=== PATIENT | male | born 1995 | race Caucasian/White ===

== ENCOUNTER 2016-10-02 02:30 | Emergency (ER) | payer SELFPAY ==
[~2016-10-02] VITALS: Ht 160 cm; Wt 59.9 kg
--- NOTE | 2016-10-02 02:30 | NUR ---
AMBULATED TO ER BED 4
[2016-10-02 02:39] VITALS: BP 123/76
[2016-10-02] MEDS ORDERED: MORPHINE SULFATE 4 MG/ML SYR IM ONE (02:50)
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
--- NOTE | 2016-10-02 03:20 | NUR ---
Patient being evaluated by DR. BEAULIEU at bedside.
[2016-10-02] MEDS ORDERED: LIDOCAINE 1% 500 MG/50 ML VIAL INJ ONE (03:35)
--- NOTE | 2016-10-02 03:37 | NUR ---
[facility] [facility] AT BEDSIDE
--- NOTE | 2016-10-02 04:30 | NUR ---
DR. BEAULIEU PERFORMS SUTURE AT BEDSIDE
--- NOTE | 2016-10-02 05:09 | NUR ---
APPLIED NEOSPONRIN OINTMENT THEN COVER WITH DRY DRESSING.
[2016-10-02] MEDS ORDERED: NEOMYCIN/POLYMYXIN/BACITRACIN 0.9 GM/1 PKT TP ONE (05:12)
[2016-10-02 05:32] VITALS: BP 130/89
--- NOTE | 2016-10-02 05:32 | NUR ---
Patient discharged with v/s stable. Written and verbal after care instructions given and explained. Patient alert, oriented and verbalized understanding of instructions. Ambulatory with steady gait. All questions addressed prior to discharge. ID band removed. Patient advised to follow up with PMD. Rx of NORCO 10/325 MG, MOTRIN 800 MG given. Patient educated on indication of medication including possible reaction and side effects. Opportunity to ask questions provided and answered.
== END 2016-10-02 05:32 | disposition home or self-care (01) ==
LOC: MED 02:30
DX: S52.601A Unspecified fracture of lower end of right ulna, initial encounter for closed fracture (principal); S51.811A Laceration without foreign body of right forearm, initial encounter; R20.0 Anesthesia of skin; F12.90 Cannabis use, unspecified, uncomplicated; W26.0XXA Contact with knife, initial encounter; Y93.89 Activity, other specified; Y92.89 Other specified places as the place of occurrence of the external cause; Y99.8 Other external cause status
CPT/HCPCS: 12002; 29125; 73110; 96372; 99284; J2001; J2270

== ENCOUNTER 2018-01-24 23:25 | Emergency (ER) | payer SELFPAY ==
[~2018-01-24] VITALS: Ht 167.6 cm; Wt 59.0 kg
[2018-01-24 23:25] VITALS: BP 136/74
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
[2018-01-24 23:43] VITALS: BP 133/72
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
== END 2018-01-24 23:44 | disposition home or self-care (01) ==
LOC: MED 23:25
DX: Z02.89 Encounter for other administrative examinations (principal)
CPT/HCPCS: 99283